=== PATIENT | female | born 1980 | race Caucasian/White ===

== ENCOUNTER 2017-11-08 15:17 | Emergency (ER) | payer MEDICAID ==
[2017-11-08] MEDS: KETOROLAC 15 MG INJ IM (19:54)
== END 2017-11-08 20:13 | disposition home or self-care (01) ==
LOC: FTE 15:17
DX: S01.81XA Laceration without foreign body of other part of head, initial encounter (principal); W20.8XXA Other cause of strike by thrown, projected or falling object, initial encounter; Y92.9 Unspecified place or not applicable
CPT/HCPCS: 12011; 96372; 99284-25

== ENCOUNTER 2019-01-16 18:14 | Emergency (ER) | payer MEDICAID ==
[2019-01-16 19:31] LABS: ADD UMIC YES; UR ASCORBIC ACID NEGATIVE (NEGATIVE); UR BACTERIA FEW /HPF (NONE SEEN); UR BILIRUBIN (Dip) NEGATIVE (NEGATIVE); UR BLOOD (Dip) 1+ mg/dL (NEGATIVE); UR CLARITY CLOUDY (CLEAR); UR COLOR YELLOW (YELLOW); UR GLUCOSE (Dip) NEGATIVE (NEGATIVE); UR KETONES (Dip) NEGATIVE (NEGATIVE); UR LEUKOCYTE ESTERASE (Dip) 1+ Leu/ul (NEGATIVE); UR NITRITE (Dip) POSITIVE (NEGATIVE); UR RBC 3 /HPF (0-5); UR SPECIFIC GRAVITY (Dip) 1.015 (1.003-1.030); UR SQUAMOUS EPITHELIAL CELL MODERATE /HPF (FEW); UR TOTAL PROTEIN (Dip) NEGATIVE (NEGATIVE); UR UROBILINOGEN (Dip) NEGATIVE (NEGATIVE); UR WBC 81 /HPF (0-5)
[2019-01-16] MEDS: CEPHALEXIN 500 MG CAP PO (19:51)
[2019-01-16] MEDS: PHENAZOPYRIDINE 100 MG TAB PO (19:51)
== END 2019-01-16 22:56 | disposition home or self-care (01) ==
LOC: FTE 22:56
DX: N39.0 Urinary tract infection, site not specified (principal); R10.2 Pelvic and perineal pain; M54.5 Low back pain
CPT/HCPCS: 76856; 81001; 81025; 99284-25